=== PATIENT | female | born 1970 | race Caucasian/White ===

== ENCOUNTER 2023-04-17 19:12 | Emergency (ER) | payer OTHER ==
[~2023-04-17] VITALS: Ht 152.4 cm; Wt 102.5 kg
[2023-04-17] MEDS ORDERED: IV NORMAL SALINE 1000 ML BAG IV ONE (19:45)
[2023-04-17] MEDS ORDERED: CEFTRIAXONE /D5W 50ML IVPB **ER PYXIS IV ONE (19:57)
[2023-04-17] MEDS ORDERED: CEFTRIAXONE 1 G in IV DEXTROSE 5% 50 ML IV ONE (20:00)
[2023-04-17] MEDS ORDERED: GENTAMICIN SULFATE 20 MG/2 ML VIAL IV ONE ×2 (20:00→20:04)
[2023-04-17 20:07] LABS: CALCIUM 8.2 mg/dL (8.5-10.1); CARBON DIOXIDE 20 mmol/L (21-32); CHLORIDE 95 mmol/L (98-107); CREATININE 2.6 mg/dL (0.6-1.3); GLUCOSE 130 mg/dL (74-106); POTASSIUM 3.1 mmol/L (3.5-5.1); SODIUM SERUM 129 mmol/L (136-145); UREA NITROGEN, BLOOD 29 mg/dL (7-18)
[2023-04-17 20:19] LABS: LACTIC ACID 6.9 mmol/L (0.4-2.0)
[2023-04-17 20:28] LABS: BASOPHILS % (AUTO) 0.1 % (0.0-2.0); EOSINOPHILS % (AUTO) 0.2 % (0.0-7.0); HEMATOCRIT 39.4 % (31.2-41.9); HEMOGLOBIN 13.7 g/dL (10.9-14.3); LYMPHOCYTES # (AUTO) 0.9 K/uL (0.8-4.8); LYMPHOCYTES % (AUTO) 8.7 % (20.5-51.5); MEAN CORPUSCULAR HEMOGLOBIN 30.8 uug (24.7-32.8); MEAN CORPUSCULAR HGB CONC 35 g/dL (32.3-35.6); MEAN CORPUSCULAR VOLUME 88.6 fL (75.5-95.3); MONOCYTES # (AUTO) 0.5 K/uL (0.1-1.30); MONOCYTES % (AUTO) 5.1 % (0.0-11.0); NEUTROPHILS # (AUTO) 8.9 K/uL (1.8-8.9); NEUTROPHILS % (AUTO) 85.9 % (38.5-71.5); RED BLOOD CELL COUNT(AUTO) 4.45 MIL/uL (3.63-4.92); WHITE BLOOD COUNT (AUTO) 10.3 K/uL (3.8-11.8)
[2023-04-17 20:29] LABS: DIFFERENTIAL COMMENT 1
[2023-04-17 20:29] LABS: *BLOOD, URINE 1+ (NEGATIVE); *CLARITY,URINE CLOUDY (CLEAR); *COLOR,URINE DARK YELLOW (YELLOW); *KETONES,URINE TRACE (NEGATIVE); *PROTEIN,URINE 2+ (NEGATIVE); LEUKOCYTE ESTERASE ,URINE NEGATIVE (NEGATIVE); NITRITE, URINE POSITIVE (NEGATIVE); PH,URINE 5.5 (5.0-8.0); UGLUCOSE NEGATIVE (NEGATIVE)
[2023-04-17 20:30] LABS: PLATELET COUNT (AUTO) 33 K/uL (179-408)
[2023-04-17 20:33] LABS: ALANINE AMINOTRANSFERASE 68 U/L (14-59); ALBUMIN 2.9 g/dL (3.4-5.0); ALKALINE PHOSPHATASE 106 U/L (50-136); ASPARTATE AMINOTRANSFERASE 73 U/L (15-37); NT-PRO BNP 872 pg/mL (0-125); TOTAL PROTEIN, SERUM 6.4 g/dL (6.4-8.2)
[2023-04-17 20:38] LABS: *BILIRUBIN,URIN 1+ (NEGATIVE)
[2023-04-17] MEDS ORDERED: POTASSIUM BICARBONATE/CIT AC 25 MEQ TABLET.EFF PO ONE (20:45)
[2023-04-17] MEDS ORDERED: CHOLECALCIFEROL 1,000 UNIT TABLET PO SCH (20:45)
[2023-04-17] MEDS ORDERED: IV NS 1000 ML 1,000 ML IV ONE ×2 (21:00)
[2023-04-17] MEDS ORDERED: CHOLECALCIFEROL 1,000 UNIT TABLET ONE (21:01)
[2023-04-17] MEDS ORDERED: POTASSIUM BICARBONATE/CIT AC 25 MEQ TABLET.EFF ONE (21:01)
[2023-04-17 21:07] LABS: BACTERIA,URINE MODERATE /HPF (NONE SEEN); CALCIUM OXALATE CRYSTALS,UR FEW /HPF (NONE SEEN); SQUAMOUS EPITHELIAL CELL,UR FEW /HPF (NONE SEEN); WBC,URINE 20-50 /HPF (0-3)
[2023-04-17 21:09] LABS: URINE AMORPHOUS URATE MODERATE /HPF
[2023-04-18 00:12] LABS: BAND % (MANUAL) 3 % (0-10); LYMPHOCYTES % (MANUAL) 11 % (20-40); MONOCYTES % (MANUAL) 7 % (2-10); NEUTROPHILS % (MANUAL) 78 % (42-75)
[2023-04-18 00:13] LABS: PLATELET ESTIMATE DECREASED
[2023-04-18] MEDS ORDERED: HYDROMORPHONE 1 MG/1 ML DISP.SYRIN ONE (00:53)
[2023-04-18] MEDS ORDERED: PROM5SYR PO (02:57)
[2023-04-18] MEDS ORDERED: ALBU18HF2 INH (02:57)
[2023-04-18] MEDS ORDERED: OXYC-128 PO (04:18)
[2023-04-18] MEDS ORDERED: IBUP-1957 PO (04:18)
[2023-04-18] MEDS ORDERED: TAMS-3 PO (04:18)
[2023-04-18] MEDS ORDERED: ACETAMINOPHEN 325 MG TABLET PO ONE (07:15)
[2023-04-18] MEDS ORDERED: ACETAMINOPHEN 325 MG TABLET ONE (07:42)
[2023-04-18 09:18] VITALS: BP 132/80; TEMP 99; O2SAT 100
== END 2023-04-18 09:19 | disposition short-term general hospital (02) ==
LOC: ER 19:15
DX: A41.9 Sepsis, unspecified organism (principal); N39.0 Urinary tract infection, site not specified; N13.5 Crossing vessel and stricture of ureter without hydronephrosis; E87.1 Hypo-osmolality and hyponatremia; E87.20 Acidosis, unspecified; R79.89 Other specified abnormal findings of blood chemistry; D69.6 Thrombocytopenia, unspecified; E83.51 Hypocalcemia; K74.60 Unspecified cirrhosis of liver; R74.01 Elevation of levels of liver transaminase levels; E46 Unspecified protein-calorie malnutrition; Z68.41 Body mass index [BMI] 40.0-44.9, adult; Z79.1 Long term (current) use of non-steroidal anti-inflammatories (NSAID); Z79.899 Other long term (current) drug therapy
CPT/HCPCS: 99291; 74176; 96365; 71045 ×2; 96361; 96375; 87426; 80076; 80048; 81001; 83880; 85025; 85379; 85730; 87040 ×2; 84484; 93005; 83605 ×2; 85007; J1580; J0696; J7040 ×2; J1170; 70030-TC; A4606; A4663; C1758